=== PATIENT | male | born 2000 | race Caucasian/White ===

== ENCOUNTER 2023-11-07 18:00 | Emergency (ER) | payer SELFPAY ==
[2023-11-07 18:09] VITALS: BP 125/72; PULSE 88; RESP 18; TEMP 98.8; BMI 23.6
== END 2023-11-07 19:54 | disposition home or self-care (01) ==
LOC: JER 18:00 → JERFT 18:00
DX: T63.441A Toxic effect of venom of bees, accidental (unintentional), initial encounter (principal); L30.9 Dermatitis, unspecified
CPT/HCPCS: 99283-25